=== PATIENT | female | born 1980 | race American Indian/Alaskan Native ===

== ENCOUNTER 2016-10-27 16:46 | Emergency (ER) | payer OTHER ==
[2016-10-27] MEDS ORDERED: NORCO 5/325 PO ONE (21:39)
[2016-10-27 22:13] VITALS: BP 131/89
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
[2016-10-27] MEDS ORDERED: ZOFRAN ODT PO ONE (23:06)
--- NOTE | 2016-10-27 23:20 | Cat Scan Report ---
FINAL REPORT PROCEDURE: CT LUMBAR SPINE WO CON TECHNIQUE: Computerized axial tomography of the lumbar spine was performed from T12 to the sacrum without contrast material. HISTORY: c/o worsenign lower back pain COMPARISON: No prior studies are available for comparison. FINDINGS: There is no scoliosis. No lumbar compression fracture is seen. No pars defect or spondylolisthesis is seen. 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 No bony central canal or neural foraminal stenosis is seen. No disc herniation is seen. IMPRESSION: No significant abnormality
[2016-10-27] MEDS ORDERED: BABY ASPIRIN ONE (23:23)
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
== END 2016-10-27 23:48 | disposition home or self-care (01) ==
LOC: ED 16:46
DX: S16.1XXA Strain of muscle, fascia and tendon at neck level, initial encounter (principal); I10 Essential (primary) hypertension; J45.909 Unspecified asthma, uncomplicated; Z90.89 Acquired absence of other organs; Z88.0 Allergy status to penicillin; Z91.013 Allergy to seafood; V89.2XXA Person injured in unspecified motor-vehicle accident, traffic, initial encounter; Y93.89 Activity, other specified; Y99.8 Other external cause status; Y92.89 Other specified places as the place of occurrence of the external cause
CPT/HCPCS: 70450; 72125; 72131; Q0162

== ENCOUNTER 2016-10-31 12:17 | Emergency (ER) | payer SELFPAY ==
[2016-10-31 12:36] VITALS: BP 126/86
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
[2016-10-31] MEDS ORDERED: TYLENOL PO ONE (16:11)
--- NOTE | 2016-11-04 16:03 | ED Elopement Review ---
ED Pt Elopement review - Call Back decision Pt Call Back Decision: No action required
== END 2016-10-31 19:35 | disposition left against medical advice (07) ==
LOC: ED 12:17
DX: M54.5 Low back pain (principal); I10 Essential (primary) hypertension; Z53.21 Procedure and treatment not carried out due to patient leaving prior to being seen by health care provider
CPT/HCPCS: 93005; 93010

== ENCOUNTER 2017-06-27 16:53 | Emergency (ER) | payer OTHER ==
[2017-06-27 16:58] VITALS: BP 147/95
[2017-06-27] MEDS ORDERED: FLEXERIL PO ONE (20:03)
[2017-06-27] MEDS ORDERED: TORADOL IM ONE (20:03)
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
--- NOTE | 2017-06-27 20:52 | Cat Scan Report ---
FINAL REPORT PROCEDURE: CT head without contrast. TECHNIQUE: Computerized tomography of the head was performed without contrast material. HISTORY: Headache, nausea and vomiting. COMPARISON: CT head 10/27/2016. FINDINGS: The ventricles are normal in size. The webb matter and white matter appear normal. There are no mass lesions. There is no intracranial hemorrhage. The calvarium appears intact. The mastoid air cells and visualized paranasal sinuses are well aerated. IMPRESSION: Normal study.
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
== END 2017-06-27 21:40 | disposition home or self-care (01) ==
LOC: ED 16:53
DX: S39.012A Strain of muscle, fascia and tendon of lower back, initial encounter (principal); R51 Headache; I10 Essential (primary) hypertension; Z88.0 Allergy status to penicillin; Z91.013 Allergy to seafood; J45.909 Unspecified asthma, uncomplicated; V43.52XA Car driver injured in collision with other type car in traffic accident, initial encounter; Y93.89 Activity, other specified; Y92.89 Other specified places as the place of occurrence of the external cause; Y99.8 Other external cause status
CPT/HCPCS: 70450; 72131; 96372; 99283; J1885

== ENCOUNTER 2017-10-29 12:26 | Emergency (ER) | payer OTHER ==
[2017-10-29 12:33] VITALS: BP 142/85
[2017-10-29] MEDS ORDERED: MOTRIN PO ONE (14:21)
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
== END 2017-10-29 15:23 | disposition home or self-care (01) ==
LOC: ED 12:26
DX: S13.4XXA Sprain of ligaments of cervical spine, initial encounter (principal); S39.012A Strain of muscle, fascia and tendon of lower back, initial encounter; I10 Essential (primary) hypertension; Z88.0 Allergy status to penicillin; Z91.013 Allergy to seafood; J45.909 Unspecified asthma, uncomplicated; V89.2XXA Person injured in unspecified motor-vehicle accident, traffic, initial encounter; Y93.89 Activity, other specified; Y92.89 Other specified places as the place of occurrence of the external cause; Y99.8 Other external cause status
CPT/HCPCS: 99282

== ENCOUNTER 2017-11-06 18:51 | Emergency (ER) | payer OTHER ==
[2017-11-06 20:10] LABS: Basophils # (Auto) 0.1 K/mm3 (0.0-0.1); Basophils % (Auto) 0.7 % (0.0-1.8); Eosinophils # (Auto) 0.2 K/mm3 (0.0-0.4); Eosinophils % (Auto) 1.7 % (0.0-4.3); Hematocrit 39.2 % (30.3-42.9); Hemoglobin 12.1 gm/dl (10.1-14.3); Lymphocytes # (Auto) 2.5 K/mm3 (1.2-5.4); Mean Corpuscular HGB Conc 31 % (30-34); Monocytes # (Auto) 0.5 K/mm3 (0.0-0.8); Monocytes % (Auto) 5.1 % (0.0-7.3); Platelet Count 248 K/mm3 (140-440); Red Blood Count 5.63 M/mm3 (3.65-5.03); Red Cell Distribution Width 18.8 % (13.2-15.2)
[2017-11-06 20:11] LABS: Mean Corpuscular Hemoglobin 22 pg (28-32); Mean Corpuscular Volume 70 fl (79-97)
[2017-11-06 20:22] LABS: Alanine Aminotransferase 20 units/L (7-56); BUN/Creatinine Ratio 11; Blood Urea Nitrogen 9 mg/dL (7-17); Calcium 9.2 mg/dL (8.4-10.2); Hemolysis Index 12; Lipase 12 units/L (13-60)
[2017-11-06 20:55] LABS: Bilirubin,Urine NEG (Negative); Blood,Urine SM (Negative); Color,Urine Yellow (Yellow); Mucus,Urine FEW /HPF; Protein,Urine <15 mg/dL mg/dL (Negative); Urobilinogen,Urine < 2.0 mg/dL (<2.0)
[2017-11-06] MEDS ORDERED: TYLENOL ONE (22:36)
[2017-11-06] MEDS ORDERED: TYLENOL PO ONE (22:45)
[2017-11-06 23:00] LABS: HCG Qualitative,Urine Negative (Negative)
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
[2017-11-07] MEDS ORDERED: ZOFRAN ODT PO ONE (00:28)
[2017-11-07] MEDS ORDERED: PERCOCET 5/325 PO ONE (00:28)
[2017-11-07] MEDS ORDERED: BACTRIM DS PO ONE (00:30)
[2017-11-07 01:53] VITALS: BP 125/91
== END 2017-11-07 02:20 | disposition home or self-care (01) ==
LOC: ED 18:51
DX: S09.90XA Unspecified injury of head, initial encounter (principal); M54.5 Low back pain; N30.01 Acute cystitis with hematuria; I10 Essential (primary) hypertension; F11.10 Opioid abuse, uncomplicated; J45.909 Unspecified asthma, uncomplicated; Z88.0 Allergy status to penicillin; Z91.013 Allergy to seafood; V89.2XXA Person injured in unspecified motor-vehicle accident, traffic, initial encounter; Y93.89 Activity, other specified; Y92.89 Other specified places as the place of occurrence of the external cause; Y99.8 Other external cause status
CPT/HCPCS: 36415; 70450; 80053; 81001; 81025; 83690; 85025; 87086; 99284; Q0162

== ENCOUNTER 2018-09-19 19:36 | Emergency (ER) | payer OTHER ==
[2018-09-19 19:43] VITALS: BP 146/99
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
[2018-09-19] MEDS ORDERED: BENADRYL PO ONE (21:48)
[2018-09-19] MEDS ORDERED: TYLENOL PO ONE (21:48)
[2018-09-19] MEDS ORDERED: REGLAN PO ONE (21:48)
[2018-09-19] MEDS ORDERED: DECADRON IM ONE (21:49)
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
== END 2018-09-19 22:35 | disposition home or self-care (01) ==
LOC: ED 19:36
DX: S39.012A Strain of muscle, fascia and tendon of lower back, initial encounter (principal); R51 Headache; I10 Essential (primary) hypertension; J45.909 Unspecified asthma, uncomplicated; V49.49XA Driver injured in collision with other motor vehicles in traffic accident, initial encounter; Y93.89 Activity, other specified; Y92.89 Other specified places as the place of occurrence of the external cause; Y99.8 Other external cause status
CPT/HCPCS: 70460; 72100; 96372; 99284; J1100

== ENCOUNTER 2018-09-26 18:43 | Emergency (ER) | payer OTHER ==
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
--- NOTE | 2018-09-26 20:00 | XRay Report ---
PROCEDURE: XR SPINE LUMBOSACRAL 2-3V TECHNIQUE: Frontal and lateral views lumbar spine HISTORY: low back pain COMPARISONS: X-ray lumbar spine dated September 19, 2018 FINDINGS: Bony alignment is normal. The vertebral heights and disc spaces are maintained. There is no evidence of fracture or subluxation. The paraspinous soft tissues are unremarkable. IMPRESSION: 1. Unremarkable study. If the patient remains symptomatic, MRI may be helpful for further evaluation. This document is electronically signed by Estee Marquez MD., September 26 2018 07:58:44 PM ET
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
[2018-09-26] MEDS ORDERED: ZOFRAN ODT PO ONE (22:08)
[2018-09-26] MEDS ORDERED: TORADOL IM ONE (22:08)
[2018-09-26 22:32] VITALS: BP 140/95
== END 2018-09-26 22:32 | disposition home or self-care (01) ==
LOC: ED 18:43
DX: S39.012A Strain of muscle, fascia and tendon of lower back, initial encounter (principal); M25.561 Pain in right knee; R51 Headache; I10 Essential (primary) hypertension; J45.909 Unspecified asthma, uncomplicated; Z90.89 Acquired absence of other organs; Z88.0 Allergy status to penicillin; Z91.013 Allergy to seafood; Z98.51 Tubal ligation status; V87.7XXA Person injured in collision between other specified motor vehicles (traffic), initial encounter; Y93.89 Activity, other specified; Y92.488 Other paved roadways as the place of occurrence of the external cause; Y99.8 Other external cause status
CPT/HCPCS: 70450; 72100; 73562; 96372; 99284; J1885; Q0162

== ENCOUNTER 2018-11-02 19:31 | Emergency (ER) | payer OTHER ==
[2018-11-02 20:23] VITALS: BP 147/96
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
== END 2018-11-02 20:43 | disposition home or self-care (01) ==
LOC: ED 19:31
DX: N64.4 Mastodynia (principal); I10 Essential (primary) hypertension; J45.909 Unspecified asthma, uncomplicated; Z90.89 Acquired absence of other organs; Z98.51 Tubal ligation status; Z88.0 Allergy status to penicillin; Z91.013 Allergy to seafood

== ENCOUNTER 2019-01-26 12:11 | Emergency (ER) | payer OTHER ==
[2019-01-26 12:30] VITALS: BP 144/86
[2019-01-26 12:49] LABS: Basophils # (Auto) 0.1 K/mm3 (0.0-0.1); Basophils % (Auto) 0.8 % (0.0-1.8); Eosinophils # (Auto) 0.1 K/mm3 (0.0-0.4); Eosinophils % (Auto) 1.7 % (0.0-4.3); Hematocrit 35.5 % (30.3-42.9); Hemoglobin 11.5 gm/dl (10.1-14.3); Lymphocytes # (Auto) 1.9 K/mm3 (1.2-5.4); Lymphocytes % (Auto) 25.7 % (13.4-35.0); Mean Corpuscular HGB Conc 33 % (30-34); Mean Corpuscular Volume 68 fl (79-97); Monocytes # (Auto) 0.3 K/mm3 (0.0-0.8); Monocytes % (Auto) 3.7 % (0.0-7.3); Platelet Count 261 K/mm3 (140-440); Red Cell Distribution Width 17.9 % (13.2-15.2)
[2019-01-26 13:11] LABS: Alanine Aminotransferase 11 units/L (7-56); Albumin 3.8 g/dL (3.9-5); BUN/Creatinine Ratio 11; Blood Urea Nitrogen 10 mg/dL (7-17); Calcium 9.1 mg/dL (8.4-10.2); Hemolysis Index 4
[2019-01-26] MEDS ORDERED: TORADOL IM ONE (15:24)
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
== END 2019-01-26 16:05 | disposition home or self-care (01) ==
LOC: ED 12:11
DX: N64.4 Mastodynia (principal); I10 Essential (primary) hypertension; J45.909 Unspecified asthma, uncomplicated
CPT/HCPCS: 36415; 80053; 85025; 96372; 99283; J1885

== ENCOUNTER 2019-03-19 13:24 | Emergency (ER) | payer MEDICAID, OTHER ==
[2019-03-19] MEDS ORDERED: ASPIRIN PO ONE (14:58)
[2019-03-19] MEDS ORDERED: ASPIRIN ONE (15:02)
--- NOTE | 2019-03-19 16:18 | XRay Report ---
CHEST 1 VIEW INDICATION: Chest Pain. COMPARISON: None FINDINGS: Support devices: None. Heart: Within normal limits. Lungs/Pleura: No acute air space or interstitial disease. Additional findings: None. IMPRESSION: No acute findings. Signer Name: Jules Collier Jr, MD Signed: 03/19/2019 4:14 PM Workstation Name: [id number]
[2019-03-19 16:39] LABS: BUN/Creatinine Ratio 11; Blood Urea Nitrogen 9 mg/dL (7-17); Hemolysis Index 108
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
[2019-03-19] MEDS ORDERED: ZOFRAN ODT PO ONE (17:29)
[2019-03-19] MEDS ORDERED: BENADRYL PO ONE (17:29)
[2019-03-19] MEDS ORDERED: TORADOL IM ONE (17:29)
[2019-03-19 17:41] LABS: Hematocrit 40.9 % (30.3-42.9); Hemoglobin 12.7 gm/dl (10.1-14.3); Mean Corpuscular HGB Conc 31 % (30-34); Mean Corpuscular Volume 71 fl (79-97); Platelet Count 248 K/mm3 (140-440); Red Blood Count 5.75 M/mm3 (3.65-5.03); Red Cell Distribution Width 18.8 % (13.2-15.2)
[2019-03-19 19:20] VITALS: BP 144/91
== END 2019-03-19 19:19 | disposition home or self-care (01) ==
LOC: ED 13:24
DX: R07.89 Other chest pain (principal); G43.009 Migraine without aura, not intractable, without status migrainosus; I10 Essential (primary) hypertension; J45.909 Unspecified asthma, uncomplicated; Z98.51 Tubal ligation status; Z79.899 Other long term (current) drug therapy; Z90.89 Acquired absence of other organs; Z88.0 Allergy status to penicillin; Z91.018 Allergy to other foods; Z91.013 Allergy to seafood
CPT/HCPCS: 36415; 71045; 80048; 84484; 85025; 93005; 93010; 96372; 99283; J1885; Q0162

== ENCOUNTER 2019-06-25 10:25 | Emergency (ER) | payer MEDICAID ==
[2019-06-25 10:34] VITALS: BP 149/95
--- NOTE | 2019-06-25 12:05 | Emergency Department Report ---
Chief Complaint: Back Pain/Injury Stated Complaint: LOWER BACK/RT LEG PAIN Time Seen by Provider: 06/25/19 11:59 - HPI History of Present Illness: 39 y o f with pmh of low back pain presents to ED cc of low mid back pain radiatinh to Right thigh x 2 weeks pt states pain is worsening with no relief with otc meds Denies swelling of legs, falls, injuries, trauma or any other sx - ROS Review of Systems: Denies all other symptoms - Exam Vital Signs: Vital Signs 06/25/19 10:32 Temperature 97.5 F L Pulse Rate 74 Respiratory 16 Rate Blood Pressure 149/95 O2 Sat by Pulse 100 Oximetry Physical Exam: EXT: full ROM. no swelling, no edema BACK: MSE screening note: Focused history and physical exam performed. Due to findings the following was ordered: ED Medical Decision Making - Medical Decision Making Pt presents with a non-medical emergency Examination is normal, Vital sign are stable Pt given information for clinics to follow up with pcp for further treatment and evaluation Also discussed strict return precautions in detail with pt who verbalized u nderstanding ED Disposition for MSE Clinical Impression: Lumbar radiculopathy, chronic Disposition: Z-07 MED SCREENING EXAM-LEFT Is pt being admited?: No Does the pt Need Aspirin: No Condition: Stable Instructions: Sciatica (ED), Lumbar Radiculopathy (ED) Referrals: PRIMARY CAREMD [Primary Care Provider] - 3-5 Days JUSTINE VALENTINE MD [Staff Physician] - 3-5 Days [facility] [Provider Group] - 3-5 Days Forms: Work/School Release Form Time of Disposition: 12:02
== END 2019-06-25 12:17 | disposition left against medical advice (07) ==
LOC: ED 10:25
DX: M54.16 Radiculopathy, lumbar region (principal); Z88.0 Allergy status to penicillin; Z91.013 Allergy to seafood
CPT/HCPCS: 99282

== ENCOUNTER 2020-12-28 21:01 | Emergency (ER) | payer MEDICAID | END 2020-12-29 03:29 | disposition left against medical advice (07) | LOC: ED 21:01 | DX: Z00.8 Encounter for other general examination (principal); Z53.21 Procedure and treatment not carried out due to patient leaving prior to being seen by health care provider ==

== ENCOUNTER 2021-07-01 12:12 | Emergency (ER) | payer MEDICAID ==
[2021-07-01] MEDS ORDERED: predniSONE 20 MG TAB PO ONE (12:22)
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
[2021-07-01 14:07] VITALS: BP 140/91
== END 2021-07-01 14:08 | disposition home or self-care (01) ==
LOC: ED 12:12
DX: T78.40XA Allergy, unspecified, initial encounter (principal); X58.XXXA Exposure to other specified factors, initial encounter; Z88.0 Allergy status to penicillin; Z91.013 Allergy to seafood; J45.909 Unspecified asthma, uncomplicated
CPT/HCPCS: 99282